=== PATIENT | male | born 1995 | race Caucasian/White ===

== ENCOUNTER → 2022-01-08 | Outpatient (REF) | payer OTHER | LOC: M SMT 13:26 | PROVIDERS: ATTEND Urology | DX: Z30.2 Encounter for sterilization (principal) ==

== ENCOUNTER → 2022-03-07 | Outpatient (REF) | payer OTHER ==
[2022-03-07 10:16] LABS: SEMEN APPEARANCE OPAQUE (OPAQUE); SEMEN VISCOSITY LIQUID (LIQUID); SEMEN VOLUME 3.3 ml (2.0-5.0); WBC CONCENTRATION >1 M/ml (<=1 M/ml)
== END ==
LOC: M SMT 09:43
PROVIDERS: ATTEND Urology
DX: Z30.2 Encounter for sterilization (principal)